=== PATIENT | male | born 1950 | race Caucasian/White ===

== ENCOUNTER 2016-12-05 15:46 | Emergency (ER) | payer OTHER ==
[2016-12-05] MEDS ORDERED: ASPIRIN CHEWTAB 81 MG TABLET ONE (16:18)
[2016-12-05] MEDS ORDERED: PANTOPRAZOLE SODIUM 40 MG VIAL IV ONE (16:18)
[2016-12-05] MEDS ORDERED: SODIUM CHLORIDE 0.9% 1,000 ML ONE (16:18)
[2016-12-05] MEDS ORDERED: ONDANSETRON 4 MG/2ML 2 ML VIAL ONE ×2 (16:18→19:39)
[2016-12-05] MEDS ORDERED: MORPHINE SULFATE 4 MG/ML SYRINGE ONE ×2 (16:18→19:40)
[2016-12-05 16:38] LABS: ABSOLUTE NEUTROPHIL COUNT 3.4 K/mm3 (1.8-7.7); BASO % 0.6 % (0.2-1.0); EOS # 0.4 (0.0-0.5); EOS % 5.1 % (0.9-2.9); HEMATOCRIT 45.3 % (32.0-52.0); HEMOGLOBIN 15.7 gm/l (14.0-18.0); IMM NEUT% 0.1 % (0-1); LYMPH # 2.8 (1.0-4.8); LYMPH % 39.5 % (15-45); MEAN CELL VOLUME 91.7 fl (80.0-94.0); MEAN CORPUSCULAR HEMOGLOBIN 31.8 pg (27.0-31.0); MEAN CORPUSCULAR HGB CONC 34.7 g/dl (33.0-37.0); MEAN PLATELET VOLUME 11.1 fl (7.4-10.4); MONO # 0.6 (0.0-0.8); MONO % 7.6 % (4-12); NEUT % 47.1 % (43-75); PLATELET COUNT 191 K/mm3 (130-400); RED CELL DISTRIBUTION WIDTH 12.6 % (11.5-14.5)
[2016-12-05 16:47] LABS: ALB/GLOB RATIO 1.1 (>1.0); ALBUMIN 4.6 gm/dL (3.5-5.7)
[2016-12-05 17:17] LABS: TROPONIN I 0.01 ng/ml (0.0-0.06)
[2016-12-05 17:20] LABS: CKMB ISOENZYME 0.9 ng/ml (0.6-6.3)
--- NOTE | 2016-12-05 17:27 | US ---
Exam: Gallbladder ultrasound COMPARISON: None INDICATION: Epigastric pain. Patient describes a few episodes of epigastric pain over the last few weeks but today there was an abrupt onset. Mild elevation of LFTs. Findings: Gallbladder ultrasound was obtained. Gallbladder is mildly distended. There is a nonmobile, somewhat tongue shaped, partially shadowing focus which is either adherent to the gallbladder wall or protruding into the gallbladder from the inferior aspect towards the fundus. This is not in the neck. This was avascular. No discrete stones are identified. There is no gallbladder wall thickening or pericholecystic fluid. A true sonographic Wilson's sign was not elicited. Common bile duct normal at 4 mm. IMPRESSION: No sonographic evidence of acute cholecystitis or biliary ductal dilation. Tongue shaped, nonmobile, partially shadowing avascular, solid structure which is either adherent to the gallbladder wall or protruding into the gallbladder lumen. Differential considerations include collapsed bowel, tumefactive sludge or much less likely a large polyp/mass. Findings discussed with Dr. Barajas at 1718 hours 12/05/2016.
--- NOTE | 2016-12-05 17:46 | RAD ---
EXAMINATION:CHEST - 2 VIEWS CLINICAL INDICATION: Sudden onset chest abdominal pain. No injury. COMPARISON:none FINDINGS: The cardiomediastinal silhouette is within normal limits. There is no adenopathy identified. There is no pleural effusion. The lungs are clear. The osseous structures are unremarkable for age. IMPRESSION: Negative PA and lateral views of the chest. No acute cardiopulmonary process is identified.
[2016-12-05 18:56] LABS: SPECIFIC GRAVITY 1.025 (1.001-1.030); URINE APPEARANCE CLEAR; URINE BILIRUBIN NEGATIVE (NEGATIVE); URINE BLOOD NEGATIVE (NEGATIVE); URINE COLOR YELLOW; URINE GLUCOSE (UA) NEGATIVE (NEGATIVE); URINE LEUKOCYTE ESTERASE NEGATIVE (NEGATIVE); URINE NITRITE NEGATIVE (NEGATIVE); URINE PROTEIN TRACE (NEGATIVE); URINE UROBILINOGEN NORMAL (0-1 mg/dl)
== END 2016-12-05 19:49 | disposition short-term general hospital (02) ==
LOC: ED 15:46
DX: R10.13 Epigastric pain (principal); R07.9 Chest pain, unspecified; R11.2 Nausea with vomiting, unspecified; F17.210 Nicotine dependence, cigarettes, uncomplicated
CPT/HCPCS: 83690; 82150; 85025; 82550; 82553; 80053; 81003; 84484 ×2; 71020; 76705; 96375 ×2; 96376 ×2; 99285 ×2; 96374; 96361 ×2; A9270; J2270 ×2; C9113; J2405 ×2; J7030